=== PATIENT | female | born 1980 | race Caucasian/White ===

== ENCOUNTER 2022-02-02 01:24 | Emergency (ER) | payer MEDICAID ==
[~2022-02-02] VITALS: Ht 154.9 cm; Wt 58.3 kg
[~2022-02-02 01:24] MED LIST: IBUP-1984 PO
[2022-02-02 01:44] VITALS: BP 139/103
== END 2022-02-02 05:37 | disposition left against medical advice (07) ==
LOC: ER 01:24
DX: F41.0 Panic disorder [episodic paroxysmal anxiety] (principal); Z53.21 Procedure and treatment not carried out due to patient leaving prior to being seen by health care provider

== ENCOUNTER 2022-02-07 05:39 | Emergency (ER) | payer MEDICAID ==
[~2022-02-07] VITALS: Ht 157.5 cm; Wt 61.4 kg
--- NOTE | 2022-02-07 06:04 | NUR ---
Poison Control - Advised to give charcoal. 4hr tylenol and aspirin level at 0900. HR will eventually reflect sinus tach d/t caffeine ingested.
[2022-02-07] MEDS ORDERED: charcoal, activated 50 GM/240 ML bottle PO ONE (06:05)
[2022-02-07 06:09] LABS: URINE HCG NEGATIVE (NEG)
[2022-02-07 06:15] LABS: BASOPHILS # (AUTO) 0.1 X10'3 (0-0.2); BASOPHILS % (AUTO) 0.6 % (0-1); EOSINOPHILS # (AUTO) 0.1 X10'3 (0-0.9); EOSINOPHILS % (AUTO) 1.3 % (0-6); HEMATOCRIT 41.3 % (35.0-45.0); HEMOGLOBIN 13.9 g/dl (12.0-16.0); LYMPHOCYTES # (AUTO) 3.5 X10'3 (1.1-4.8); MEAN CORPUSCULAR HEMOGLOBIN 31.1 PG (27.0-31.0); MEAN CORPUSCULAR HGB CONC 33.7 g/dL (33.0-36.5); MEAN CORPUSCULAR VOLUME 92.4 FL (78-98); MEAN PLATELET VOLUME 6.9 FL (7.4-10.4); MONOCYTES # (AUTO) 0.9 X10'3 (0-0.9); MONOCYTES % (AUTO) 8.3 % (2-12); NEUTROPHILS # (AUTO) 6.7 X10'3 (1.8-7.7); NEUTROPHILS % (AUTO) 58.8 % (42-75); PLATELET COUNT 228 X10'3 (140-440); RED BLOOD COUNT 4.47 X10'6 (4.20-5.60); WHITE BLOOD COUNT 11.4 X10'3 (4.5-11.0)
[2022-02-07 06:22] LABS: ALANINE AMINOTRANSFERASE 17 U/L (12-78); ALBUMIN 3.7 G/DL (3.4-5.0); ALKALINE PHOSPHATASE 79 IU/L (46-116); ANION GAP 12 (8-16); ASPARTATE AMINO TRANSFERASE 12 U/L (10-37); BILIRUBIN,TOTAL 0.4 MG/DL (0.1-1.0); BLOOD UREA NITROGEN 5 MG/DL (7-18); BUN/CREATININE RATIO 8.6 (6.6-38.0); CALCIUM 8.8 MG/DL (8.5-10.1); CHLORIDE 103 MMOL/L (99-107); CLARITY,URINE CLEAR (Clear); CREATININE 0.58 MG/DL (0.40-0.90); GLUCOSE 108 MG/DL (70-104); GLUCOSE, URINE NEGATIVE (Neg); KETONES,URINE TRACE mg/dl (Neg); LEUKOCYTE ESTERASE ,URINE NEGATIVE (Neg); NITRITES, URINE NEGATIVE (Neg); OCCULT BLOOD,URINE NEGATIVE (Neg); POTASSIUM 3.1 MMOL/L (3.5-5.1); PROTEIN,URINE NEGATIVE (Neg); SODIUM 137 MMOL/L (135-145); TOTAL CARBON DIOXIDE 22.3 MMOL/L (24-32); TOTAL PROTEIN 7.3 G/DL (6.4-8.2); UROBILINOGEN,URINE 0.2 E.U/dL (0.2-1.0); eGFR > 90 ML/MIN
[2022-02-07 06:23] LABS: URINE AMPHETAMINE SCREEN NEGATIVE (Neg); URINE BARBITUATE SCREEN NEGATIVE (Neg); URINE BENZODIAZEPINES SCREEN NEGATIVE (Neg); URINE CANNABINOID SCREEN NEGATIVE (Neg); URINE COCAINE SCREEN NEGATIVE (Neg); URINE METHADONE SCREEN NEGATIVE (Neg); URINE OPIATE SCREEN NEGATIVE (Neg); URINE PHENCYCLIDINE SCREEN NEGATIVE (Neg)
[2022-02-07 06:25] LABS: COLOR,URINE STRAW (Yellow); UA COLLECTION TYPE CLN CATCH MIDSTREAM
[2022-02-07 06:33] LABS: ETHANOL < 0.010 GM/DL (0.0-0.010)
--- NOTE | 2022-02-07 07:07 | NUR ---
Pt sitting on edge of gurney drinking charcoal, pt requiring encouragement to drink.
[2022-02-07 08:28] LABS: ACETAMINOPHEN 57.7 UG/ML (10-30)
[2022-02-07 09:58] LABS: ACETAMINOPHEN 31.1 UG/ML (10-30)
--- NOTE | 2022-02-07 11:02 | NUR ---
POISON CONTROL CALLED AT PROVIDERS REQUEST REGARDING CONTINUED OBSERVATION TIME. PER POISON CONTROL PT IS NOT MEDICALLY CLEARED: ~NO NEED TO CONTINUE TO MONITOR FOR TYLENOL LEVELS ~CONTINUE TO MONITOR FOR ASA LEVEL UNTIL THERE IS A "PEEK AND 2 LEVELS TRENDING DOWN." PROVIDER HAS BEEN NOTIFIED
--- NOTE | 2022-02-07 15:25 | NUR ---
Reported lab results to poison control. Poison control is closing case, recommended CMP and ASA redraw at 1800 per ER MD discretion
[2022-02-07 19:32] LABS: ALANINE AMINOTRANSFERASE 20 U/L (12-78); ALBUMIN 3.8 G/DL (3.4-5.0); ALKALINE PHOSPHATASE 81 IU/L (46-116); ANION GAP 12 (8-16); ASPARTATE AMINO TRANSFERASE 12 U/L (10-37); BILIRUBIN,TOTAL 0.4 MG/DL (0.1-1.0); BLOOD UREA NITROGEN 9 MG/DL (7-18); BUN/CREATININE RATIO 12.3 (6.6-38.0); CALCIUM 8.6 MG/DL (8.5-10.1); CHLORIDE 102 MMOL/L (99-107); CREATININE 0.73 MG/DL (0.40-0.90); GLUCOSE 137 MG/DL (70-104); POTASSIUM 3.6 MMOL/L (3.5-5.1); SODIUM 137 MMOL/L (135-145); TOTAL CARBON DIOXIDE 22.7 MMOL/L (24-32); TOTAL PROTEIN 7.6 G/DL (6.4-8.2); eGFR 89 ML/MIN
[2022-02-07] MEDS ORDERED: NO HOME MEDS (20:12)
--- NOTE | 2022-02-07 20:12 | NUR ---
The patient moved to bed 23 from the main ER and she was cooperative with the move. She made a call to her son. She stated currently she is not hearing voices but while in the main ER she stated that she was hearing "murmerings" She believes it was of her sister. She stated that she had been feeling depressed but denied that she felt suicidal.
--- NOTE | 2022-02-07 20:21 | NUR ---
Nurse to nurse with [facility], [place].
--- NOTE | 2022-02-07 21:35 | NUR ---
The patient has been accepted at [facility], [place] for transfer in the AM.
--- NOTE | 2022-02-07 23:09 | NUR ---
THe patient appears to be sleeping
--- NOTE | 2022-02-08 00:09 | NUR ---
The patient appears to be sleeping
--- NOTE | 2022-02-08 01:30 | NUR ---
The patient appears to be sleeping
--- NOTE | 2022-02-08 03:03 | NUR ---
The patient appears to be sleeping
[2022-02-08 05:14] VITALS: BP 125/81
--- NOTE | 2022-02-08 05:42 | NUR ---
The patient appears to be sleeping at this time
--- NOTE | 2022-02-08 07:00 | NUR ---
Pt's aunt Flory Kimbrough called to ask how the pt was doing. Obtained verbal permission from pt to discuss plan of care with aunt. Pt has a 16 year old son that aunt has made arrangements for care. Aunt notified of pt's pending transfer to [facility]. Aunt [place] of [place].
--- NOTE | 2022-02-08 08:24 | NUR ---
[facility] office called to report pt to be picked up for transfer to [id number] this morning.
--- NOTE | 2022-02-08 08:30 | NUR ---
D/c'd saline lock left AC.
--- NOTE | 2022-02-08 08:46 | NUR ---
[facility] ambulated off the unit accompanied by [facility] fuel truck driver and security, all belongings returned including stylet for tablet that was being held by security.
== END 2022-02-08 08:46 ==
LOC: ER 05:40
DX: R45.851 Suicidal ideations (principal); Z20.822 Contact with and (suspected) exposure to COVID-19; G89.29 Other chronic pain; M54.9 Dorsalgia, unspecified; F17.200 Nicotine dependence, unspecified, uncomplicated; F15.10 Other stimulant abuse, uncomplicated; F12.10 Cannabis abuse, uncomplicated; Z56.0 Unemployment, unspecified
CPT/HCPCS: 36415; 80053; 80305; 80320; 80329; 81003; 81025; 83605; 84443; 85025; 87811; 99285

== ENCOUNTER 2022-06-02 15:24 | Emergency (ER) | payer MEDICAID ==
[~2022-06-02] VITALS: Ht 154.9 cm; Wt 81.0 kg
[~2022-06-02 15:24] MED LIST changes: -IBUP-1984 PO; +NO HOME MEDS
[2022-06-02] MEDS ORDERED: diphenhydrAMINE 50 mg/ml inj IM ONE (16:00)
[2022-06-02] MEDS ORDERED: methylPREDNISolone sod succ 125mg/2ml vial IM ONE (16:00)
[2022-06-02 17:28] VITALS: BP 110/80
[2022-06-02] MEDS ORDERED: normal saline 1000ml 1,000 ML IV ONE (18:15)
[2022-06-02] MEDS ORDERED: famotidine/PF 10 mg/ml inj IV ONE (18:15)
[2022-06-02] MEDS ORDERED: METH4TAB81 PO (19:23)
[2022-06-02] MEDS ORDERED: EPIN0.3P3 IM (19:24)
[2022-06-02] MEDS ORDERED: diphenhydrAMINE 50 mg/ml inj IV ONE (19:25)
== END 2022-06-02 20:07 | disposition home or self-care (01) ==
LOC: ER 15:25
DX: T78.40XA Allergy, unspecified, initial encounter (principal); G89.29 Other chronic pain; F32.9 Major depressive disorder, single episode, unspecified; F12.90 Cannabis use, unspecified, uncomplicated; F15.90 Other stimulant use, unspecified, uncomplicated; Z72.89 Other problems related to lifestyle; Z56.0 Unemployment, unspecified; Z98.890 Other specified postprocedural states; X58.XXXA Exposure to other specified factors, initial encounter
CPT/HCPCS: 96361; 96372; 96374; 96375; 99284; J1200; J2930; J3490; J7030

== ENCOUNTER 2022-06-05 15:01 | Emergency (ER) | payer MEDICAID ==
[~2022-06-05] VITALS: Ht 154.9 cm; Wt 82.5 kg
[~2022-06-05 15:01] MED LIST changes: +EPIN0.3P3 IM; +METH4TAB81 PO
[2022-06-05 15:06] VITALS: BP 113/75
[2022-06-05] MEDS ORDERED: dexamethasone sod phosphate 10mg/ml inj PO STA (20:31)
[2022-06-05] MEDS ORDERED: PRED20TA PO (20:35)
[2022-06-05] MEDS ORDERED: famotidine 20mg tablet PO ONE (20:35)
[2022-06-05] MEDS ORDERED: diphenhydrAMINE 50 mg/ml inj IM ONE (20:35)
== END 2022-06-05 21:12 | disposition home or self-care (01) ==
LOC: ER 15:02
DX: T78.40XA Allergy, unspecified, initial encounter (principal); G89.29 Other chronic pain; M54.9 Dorsalgia, unspecified; F32.A Depression, unspecified; F12.10 Cannabis abuse, uncomplicated; F15.10 Other stimulant abuse, uncomplicated; Z59.00 Homelessness unspecified; Z79.899 Other long term (current) drug therapy
CPT/HCPCS: 96372; 99283; J1100; J1200

== ENCOUNTER 2022-12-17 10:06 | Emergency (ER) | payer MEDICAID ==
[~2022-12-17] VITALS: Ht 154.9 cm; Wt 67.8 kg
[2022-12-17 10:19] VITALS: TEMP 97.7
[2022-12-17 11:26] VITALS: BP 110/71; PULSE 77; RESP 13; O2SAT 98
== END 2022-12-17 12:26 | disposition home or self-care (01) ==
LOC: ER 10:06
DX: S00.431A Contusion of right ear, initial encounter (principal); F41.9 Anxiety disorder, unspecified; F31.9 Bipolar disorder, unspecified; G89.29 Other chronic pain; M54.9 Dorsalgia, unspecified; F12.10 Cannabis abuse, uncomplicated; F15.10 Other stimulant abuse, uncomplicated; Z56.0 Unemployment, unspecified; Z91.010 Allergy to peanuts; Z79.899 Other long term (current) drug therapy; X58.XXXA Exposure to other specified factors, initial encounter; Y93.89 Activity, other specified; Y92.89 Other specified places as the place of occurrence of the external cause; Y99.8 Other external cause status
CPT/HCPCS: 70450; 99284

== ENCOUNTER 2023-03-12 16:49 | Emergency (ER) | payer MEDICAID ==
[~2023-03-12] VITALS: Ht 154.9 cm; Wt 90.0 kg
[2023-03-12 17:04] VITALS: BP 118/40; PULSE 87; TEMP 98; O2SAT 98
[2023-03-12] MEDS ORDERED: ketorolac tromethamine 15mg/ml inj. IM ONE (19:05)
[2023-03-12] MEDS ORDERED: oxyCODONE/APAP 5-325mg tablet PO ONE (19:05)
[2023-03-12] MEDS ORDERED: IBUP-1984 PO (19:09)
[2023-03-12 19:23] VITALS: RESP 18
== END 2023-03-12 20:11 | disposition home or self-care (01) ==
LOC: ER 16:49
DX: S50.02XA Contusion of left elbow, initial encounter (principal); X58.XXXA Exposure to other specified factors, initial encounter; Y93.89 Activity, other specified; Y92.89 Other specified places as the place of occurrence of the external cause; Y99.8 Other external cause status
CPT/HCPCS: 73080; 96372; 99283; J1885; A4565

== ENCOUNTER 2024-06-02 20:04 | Inpatient (IN) | payer MEDICAID ==
[~2024-06-02] VITALS: Ht 154.9 cm; Wt 70.6 kg
[2024-06-02 20:22] LABS: BASOPHILS # (AUTO) 0.1 X10'3 (0-0.2); BASOPHILS % (AUTO) 1.2 % (0-1); EOSINOPHILS # (AUTO) 0.1 X10'3 (0-0.9); EOSINOPHILS % (AUTO) 1.5 % (0-6); HEMATOCRIT 42.1 % (35.0-45.0); HEMOGLOBIN 14.2 g/dl (12.0-16.0); LYMPHOCYTES # (AUTO) 2.2 X10'3 (1.1-4.8); LYMPHOCYTES % (AUTO) 28.7 % (21-51); MEAN CORPUSCULAR HEMOGLOBIN 31.2 PG (27.0-31.0); MEAN CORPUSCULAR HGB CONC 33.8 g/dL (33.0-36.5); MEAN CORPUSCULAR VOLUME 92.5 FL (78-98); MEAN PLATELET VOLUME 6.5 FL (7.4-10.4); MONOCYTES # (AUTO) 0.6 X10'3 (0-0.9); MONOCYTES % (AUTO) 7.5 % (2-12); NEUTROPHILS # (AUTO) 4.7 X10'3 (1.8-7.7); NEUTROPHILS % (AUTO) 61.1 % (42-75); PLATELET COUNT 192 X10'3 (140-440); RED BLOOD COUNT 4.56 X10'6 (4.20-5.60); RED CELL DISTRIBUTION WIDTH 13.2 % (11.5-14.5); WHITE BLOOD COUNT 7.7 X10'3 (4.5-11.0)
[2024-06-02] MEDS: charcoal/sorbitol 50gm/240ml suspension PO ONE (20:25)
[2024-06-02] MEDS: charcoal/sorbitol 25GM/120ML oral SUSPension PO ONE (20:27)
[2024-06-02 20:51] LABS: SALICYLATE 2.8 MG/DL (4.0-20.0)
[2024-06-02 20:53] LABS: ALANINE AMINOTRANSFERASE 18 U/L (12-78); ALBUMIN 3.7 G/DL (3.4-5.0); ALBUMIN/GLOBULIN RATIO 1.2 (1.1-1.5); ANION GAP 12 (8-16); ASPARTATE AMINO TRANSFERASE 12 U/L (10-37); BILIRUBIN,TOTAL 0.6 MG/DL (0.1-1.0); BLOOD UREA NITROGEN 9 MG/DL (7-18); BUN/CREATININE RATIO 9.5 (10.0-20.0); CALCIUM 8.9 MG/DL (8.5-10.1); CHLORIDE 107 MMOL/L (99-107); CREATININE 0.95 MG/DL (0.40-0.90); GLUCOSE 126 MG/DL (70-104); POTASSIUM 3.8 MMOL/L (3.5-5.1); SODIUM 142 MMOL/L (135-145); TOTAL CARBON DIOXIDE 23.2 MMOL/L (24-32); TOTAL PROTEIN 6.7 G/DL (6.4-8.2); eCRCL 73 ML/MIN; eGFR 65 ML/MIN
[2024-06-02] MEDS: normal saline 1000ml 1,000 ML IV ONE (21:00)
[2024-06-02 21:05] LABS: ACETAMINOPHEN < 2.0 UG/ML (10-30)
[2024-06-02 21:06] LABS: ALKALINE PHOSPHATASE 80 IU/L (46-116)
[2024-06-02 21:07] LABS: ETHANOL < 10 MG/DL (<10)
[2024-06-02 21:32] LABS: URINE HCG NEGATIVE (NEG)
[2024-06-02 21:35] LABS: BILIRUBIN,URINE SMALL (Neg); CLARITY,URINE SLIGHTLY CLOUDY (Clear); COLOR,URINE YELLOW (Yellow); GLUCOSE, URINE NEGATIVE (Neg); KETONES,URINE >=80 mg/dl (Neg); LEUKOCYTE ESTERASE ,URINE NEGATIVE (Neg); NITRITES, URINE NEGATIVE (Neg); OCCULT BLOOD,URINE NEGATIVE (Neg); PH,URINE 5.5 (4.8-8.0); PROTEIN,URINE TRACE mg/dl (Neg); UROBILINOGEN,URINE 0.2 E.U/dL (0.2-1.0)
[2024-06-02 21:48] LABS: UA COLLECTION TYPE NON-SPECIFIED
[2024-06-02 21:49] LABS: BACTERIA,URINE 1+ /HPF (Neg); HYALINE CASTS 0-3 /LPF (NEGATIVE); MUCUS STRANDS MODERATE /LPF (Neg); RBC,URINE 0-2 /HPF (0-2); SQUAMOUS EPITHELIAL CELL,UR MODERATE /LPF (FEW); WBC,URINE 0-4 /HPF (0-4)
[2024-06-02 21:57] LABS: URINE AMPHETAMINE SCREEN POSITIVE (Neg); URINE BARBITUATE SCREEN NEGATIVE (Neg); URINE BENZODIAZEPINES SCREEN NEGATIVE (Neg); URINE CANNABINOID SCREEN NEGATIVE (Neg); URINE COCAINE SCREEN NEGATIVE (Neg); URINE METHADONE SCREEN NEGATIVE (Neg); URINE OPIATE SCREEN NEGATIVE (Neg); URINE PHENCYCLIDINE SCREEN NEGATIVE (Neg)
[2024-06-03] MEDS ORDERED: TRAZ-251 PO (02:06)
[2024-06-03] MEDS ORDERED: CETI10TA14 PO (02:06)
[2024-06-03] MEDS ORDERED: BUPR-561 PO (02:06)
[2024-06-03] MEDS ORDERED: FLUT15.845 BOTHNARES (02:06)
[2024-06-03] MEDS ORDERED: SUMA50TA17 PO (02:06)
[2024-06-03] MEDS ORDERED: EPIN0.3A3 INJ (02:06)
[2024-06-03] MEDS: BUPROPION HCL 150MG XL 24 HR 150 MG TAB PO SCH (08:32)
[2024-06-03] MEDS: cetirizine 10mg tablet PO SCH (08:32)
[2024-06-03 12:47] VITALS: BP 96/60; PULSE 99; RESP 16; TEMP 98.4; O2SAT 97
[2024-06-03] MEDS ORDERED: mag hydrox/Alum hydrox/simeth 30ml oral suspension PO PRN (12:55)
[2024-06-03] MEDS ORDERED: magnesium hydroxide 30ml (MOM) UD suspension PO PRN (12:55)
[2024-06-03 14:20] VITALS: RESP 16; O2SAT 97
[2024-06-03 19:00] VITALS: RESP 16; O2SAT 98
[2024-06-03 20:00] VITALS: BP 109/59; PULSE 98; RESP 16; TEMP 98.7; O2SAT 97
[2024-06-03] MEDS: traZODone 50mg tablet PO PRN (21:32)
[2024-06-03] MEDS: NICOTINE POLACRILEX 2 MG LOZENGE BC PRN (21:32)
[2024-06-04 07:45] VITALS: RESP 16; O2SAT 96
[2024-06-04 08:00] VITALS: BP 109/61; PULSE 85; RESP 16; TEMP 99.2; O2SAT 96
[2024-06-04 08:25] LABS: CHOL/HDL RATIO 2.1 (0.00-4.99); CHOLESTEROL 101 MG/DL (0-200); HDL CHOLESTEROL 49 MG/DL (35-60); LDL CHOLESTEROL 46 MG/DL (50-100); TRIGLYCERIDES 69 MG/DL (20-135)
[2024-06-04] MEDS: nicotine 21mg patch - 24 hr TD SCH (08:37)
[2024-06-04 19:00] VITALS: RESP 15; O2SAT 97
[2024-06-04 20:00] VITALS: BP 104/58; PULSE 88; RESP 15; TEMP 98.3; O2SAT 97
[2024-06-04] MEDS: lithium carbonate 150mg capsule PO SCH (21:05)
[2024-06-04] MEDS: acetaminophen 325mg tablet PO PRN (21:06)
[2024-06-05 08:00] VITALS: BP 107/65; PULSE 79; RESP 16; TEMP 96.2; O2SAT 98
[2024-06-05] MEDS: BUPROPION HCL 150MG XL 24 HR 150 MG TAB PO ONE (11:47)
[2024-06-05 19:00] VITALS: RESP 16; O2SAT 100
[2024-06-05 19:23] VITALS: BP 115/64; PULSE 77; RESP 16; TEMP 98.8; O2SAT 100
[2024-06-05] MEDS: acetaminophen 325mg tablet PO PRN (20:12)
[2024-06-06] MEDS: BUPROPION HCL 150MG XL 24 HR 150 MG TAB PO SCH (07:50)
[2024-06-06 07:55] VITALS: RESP 14; O2SAT 97
[2024-06-06 08:00] VITALS: BP 103/67; PULSE 78; RESP 14; TEMP 98.1
[2024-06-06 19:10] VITALS: BP 114/67; PULSE 80; RESP 18; TEMP 98.6; O2SAT 100
[2024-06-07 07:30] VITALS: BP 100/71; PULSE 90; RESP 14; TEMP 98.2; O2SAT 97
[2024-06-07 09:19] VITALS: RESP 14; O2SAT 97
[2024-06-07 19:39] VITALS: BP 115/71; PULSE 86; RESP 20; TEMP 98.5; O2SAT 98
[2024-06-07] MEDS: hydrOXYzine 25 MG tablet PO PRN (20:22)
[2024-06-08 07:30] VITALS: BP 100/64; PULSE 86; RESP 18; TEMP 97.7; O2SAT 98
[2024-06-08 07:46] VITALS: RESP 18; O2SAT 98
[2024-06-08] MEDS ORDERED: LITH150C8 PO (11:47)
[2024-06-08] MEDS ORDERED: HYDR-3686 PO (11:47)
[2024-06-08] MEDS ORDERED: BUPR-94 PO (11:49)
== END 2024-06-08 16:00 | disposition home or self-care (01) | DRG 751 ==
LOC: ER 20:04 → UNDOADMIN 06-03 11:45 → ED HOLD 06-03 11:45 → ADULT MH 06-03 12:49 → ED HOLD 06-03 12:49
PROVIDERS: ADMIT Psychiatry & Neurology Psychiatry; ATTEND Psychiatry & Neurology Psychiatry
PROC: GZHZZZZ Group Psychotherapy (ICD-10-PCS; principal; 2024-06-04)
PROC: GZ51ZZZ Individual Psychotherapy, Behavioral (ICD-10-PCS; 2024-06-04)
DX: F33.9 Major depressive disorder, recurrent, unspecified (principal); R45.851 Suicidal ideations; F15.10 Other stimulant abuse, uncomplicated; F41.9 Anxiety disorder, unspecified; Z20.822 Contact with and (suspected) exposure to COVID-19; F60.9 Personality disorder, unspecified; G43.909 Migraine, unspecified, not intractable, without status migrainosus; G89.29 Other chronic pain; M54.9 Dorsalgia, unspecified; Z88.8 Allergy status to other drugs, medicaments and biological substances; Z91.018 Allergy to other foods; Z79.899 Other long term (current) drug therapy
CPT/HCPCS: 36415; 80053; 80061; 80305; 80320; 80329; 81001; 81025; 84145; 84443; 85025; 87081; 87502; 87503; 87811; 93005; 99285; A6250; C1758; C2617; J7030; Q0177

== ENCOUNTER 2025-04-03 23:38 | Emergency (ER) | payer MEDICAID ==
[~2025-04-03] VITALS: Ht 154.9 cm; Wt 68.0 kg
[~2025-04-03 23:38] MED LIST changes: +ARIP15TA68 PO; +CETI10TA14 PO; +EPIN0.3A3 INJ; -EPIN0.3P3 IM; +FLUT15.845 BOTHNARES; +GABA-535 PO; -METH4TAB81 PO; -NO HOME MEDS; +SERT-434 PO; +SUMA50TA17 PO
[2025-04-04 00:07] VITALS: BP 153/119; PULSE 103; TEMP 97.1; O2SAT 98
--- NOTE | 2025-04-04 00:39 | Physician Documentation ---
History of Present Illness General Chief Complaint: Mechanical Fall Stated Complaint: FALL Time Seen by MD: 00:39 Primary Medical Doctor: [facility] History of Present Illness Initial Comments The patient is a 44-year-old female with a history of methamphetamine abuse she states she fell out of her scooter striking her head 2 hours ago complaining of posterior occipital pain. Patient denies any loss of consciousness. Patient complains of whole-body stiffness since he has not had. No recent fevers chills nausea or vomiting Medication Reconciliation Allergies: Coded Allergies: nut - unspecified (Verified Allergy, Severe, 08/26/24) Hives noted with nuts Uncoded Allergies: PEANUTS (Allergy, Severe, 08/26/24) Hives ALMONDS (Allergy, Intermediate, 12/17/22) SESAME SEEDS (Allergy, Intermediate, 12/17/22) TREES (Allergy, Mild, 12/17/22) Scheduled Aripiprazole (Aripiprazole), 1 TAB PO DAILY Cetirizine HCl (Cetirizine HCl), 1 TAB PO DAILY, (Reported) Gabapentin (Gabapentin), 400 MG PO BID Sertraline HCl (Sertraline HCl), 1 TAB PO DAILY Scheduled PRN Epinephrine (Epinephrine), 1 UNIT INJ PRN PRN for allergies, (Reported) Sumatriptan Succinate (Sumatriptan Succinate), 1 TAB PO DAILY PRN for headache, (Reported) Miscellaneous Medications Fluticasone Propionate (Fluticasone Propionate), 1 SPR BOTHNARES, (Reported) Past Medical History Past Medical History: Chronic Back Pain, Anxiety, Depression Past Surgical History: orthopedic surgeries Smoking: Cigarettes, Greater than 1 pack/day Alcohol Use: Occasionally Drug Use: marijuana, methamphetamine Lives with: Family Lives In: Home Occupation: unemployed Review of Systems All Other Systems at this time: Reviewed and Negative Physical Exam Physical Exam Vital Signs: Temperature: 97.1, Source: Oral, Heart Rate: 103, Respiratory Rate: 16, BP: 153/119, Pulse Oximetry: 98, Weight: 68.000 Physical Exam VITALS: Reviewed and as above. GENERAL: Alert, no apparent distress. HEENT: Normocephalic, atraumatic, PERRL, EOMI, dry mucosa, no erythema RESPIRATORY: Lungs clear, normal breath sounds, no respiratory distress. CHEST: No accessory muscle use, no retractions CV: Regular rate, rhythm, no edema, no murmur, No: JVD GI: Soft, non-tender, bowels sounds present, no rebound, guarding, or rigidity BACK: No CVA tenderness, or swelling MUSCULOSKELETAL: No deformities, no edema SKIN: Warm and dry, no rash NEURO: Oriented x4, No motor or sensory deficit PSYCH: Slight psychomotor agitation Progress Results/Orders Results/Orders Orders - HAILEY LEMUS MD Ct Head (04/04/25 00:52) Completed Orders - HAILEY LEMUS MD Ct Head (04/04/25 00:52) Ketorolac Trometh 15mg/Ml Vial (Toradol (04/04/25 00:55) Medical Decision Making Additional information obtaine: old records Findings Patient appeared to be methamphetamine intoxicated she stated she struck her head and fell off her scooter. The patient otherwise has a nonfocal neurologic exam the patient had a negative head CT the patient left prior to intentional discharged. Prior hospitalizations has been reviewed the patient's pulse oximetry was interpreted as normal Differential Diagnosis Contusion, intracranial hemorrhage, Departure Disposition: 01 HOME / SELF CARE / HOMELESS Impression: Primary Impression: Fall Qualified Codes: W19.XXXA - Unspecified fall, initial encounter Additional Impression: Methamphetamine abuse Referrals: NO PRIMARY CARE PROVIDER (PCP) Signature Scribe Signature: no scribe Attestation: The note accurately reflects work and decisions made by me.Hailey Lemus MD 04/08/25 11:13 HAILEY LEMUS MD Apr 04, 2025 00:39
[2025-04-04 00:41] VITALS: RESP 22
[2025-04-04] MEDS ORDERED: ketorolac trometh 15mg/ml vial 15 MG/ML ML IM ONE (00:55)
--- NOTE | 2025-04-04 01:25 | RADIOLOGY REPORT ---
EXAM: CT CT HEAD INDICATION: fall head injury, pain TECHNIQUE: CT of the head without intravenous contrast. Radiation Dose Information: CT Dose: CTDI volume is 47.12 mGy. Dose-length product is 886.2 mGy*cm The dose indicators for CT are the volume Computed Tomography (CT) Dose Index (CTDIvol) and the Dose Length Product (DLP), and are measured in units of mGy and mGy-cm, respectively. These indicators are not patient dose, but values generated from the CT scanner acquisition factors. The report includes radiation exposure data for exposures received during this examination. COMPARISON: None FINDINGS: There is no evidence of acute intracranial hemorrhage, extra-axial collection, mass effect, midline shift, herniation or hydrocephalus. The ventricles, sulci and cisterns are age appropriate. The willis-white differentiation is intact. Patchy periventricular and subcortical white matter hypoattenuation is nonspecific but may be related to small vessel ischemic disease. The visualized paranasal sinuses and mastoid air cells are clear. Right parietal scalp swelling. IMPRESSION: No acute intracranial abnormality.
== END 2025-04-04 02:49 | disposition left against medical advice (07) ==
LOC: ER 23:38
DX: R51.9 Headache, unspecified (principal); F15.10 Other stimulant abuse, uncomplicated; F12.90 Cannabis use, unspecified, uncomplicated; G89.29 Other chronic pain; F41.9 Anxiety disorder, unspecified; F32.A Depression, unspecified; F17.210 Nicotine dependence, cigarettes, uncomplicated; Z91.018 Allergy to other foods; Z79.899 Other long term (current) drug therapy; Z56.0 Unemployment, unspecified; Z72.89 Other problems related to lifestyle; W05.1XXA Fall from non-moving nonmotorized scooter, initial encounter; Y93.89 Activity, other specified; Y92.89 Other specified places as the place of occurrence of the external cause; Y99.8 Other external cause status
CPT/HCPCS: 70450; 99284

== ENCOUNTER 2025-05-14 09:58 | Emergency (ER) | payer MEDICAID ==
[~2025-05-14] VITALS: Ht 154.9 cm; Wt 69.4 kg
[2025-05-14 10:52] LABS: LEUKOCYTE ESTERASE ,URINE NEGATIVE (Neg); NITRITES, URINE NEGATIVE (Neg); OCCULT BLOOD,URINE NEGATIVE (Neg)
[2025-05-14 10:53] LABS: UA COLLECTION TYPE CLN CATCH MIDSTREAM; URINE HCG NEGATIVE (NEG)
[2025-05-14 11:05] LABS: MEAN PLATELET VOLUME 6.8 FL (7.4-10.4); RED CELL DISTRIBUTION WIDTH 13.7 % (11.5-14.5)
[2025-05-14 11:13] LABS: CREATININE 0.68 MG/DL (0.40-0.90); TOTAL CARBON DIOXIDE 29.7 MMOL/L (24-32); eCRCL 81 ML/MIN; eGFR > 90 ML/MIN
--- NOTE | 2025-05-14 11:32 | Physician Documentation ---
History of Present Illness General Chief Complaint: Flank Pain Stated Complaint: BACK AND FLANK PAIN Time Seen by MD: 11:09 OK to notify your PCP?: Yes [facility] Mode of Arrival: Ambulatory History of Present Illness Initial Comments 44 year old female came to the ER with cc of left back pain radiating to left flank and to left groin for the past day, she woke up in the morning at 2 am, with sudden onset pain in the back, no inciting trauma denies fever, uti symptoms, n/v, abd pain denies previous h/o kidney stones currently pain is 6/10 no similiar kind of pain in the past she took acetaminophen for the pain she is taking lithium and zoloft Medication Reconciliation Allergies: Coded Allergies: nut - unspecified (Verified Allergy, Severe, 05/14/25) Hives noted with nuts Uncoded Allergies: PEANUTS (Allergy, Severe, 08/26/24) Hives ALMONDS (Allergy, Intermediate, 12/17/22) SESAME SEEDS (Allergy, Intermediate, 12/17/22) TREES (Allergy, Mild, 12/17/22) Scheduled Aripiprazole (Aripiprazole), 1 TAB PO DAILY Cetirizine HCl (Cetirizine HCl), 1 TAB PO DAILY, (Reported) Gabapentin (Gabapentin), 400 MG PO BID Ibuprofen (Ibuprofen), 1 TAB PO Q8H Sertraline HCl (Sertraline HCl), 1 TAB PO DAILY Scheduled PRN Epinephrine (Epinephrine), 1 UNIT INJ PRN PRN for allergies, (Reported) ONDANSETRON ODT 4mg tablet (Ondansetron Odt), 1 TAB PO Q6H PRN PRN for nausea/vomiting Sumatriptan Succinate (Sumatriptan Succinate), 1 TAB PO DAILY PRN for headache, (Reported) Miscellaneous Medications Fluticasone Propionate (Fluticasone Propionate), 1 SPR BOTHNARES, (Reported) Past Medical History Past Medical History: Chronic Back Pain, Anxiety, Depression Other Past Medical History: schizophrenia/ depression Past Surgical History: orthopedic surgeries Smoking: Cigarettes, Greater than 1 pack/day Alcohol Use: Occasionally Drug Use: marijuana, methamphetamine Lives with: Family Lives In: Home Occupation: unemployed Review of Systems All Other Systems at this time: Reviewed and Negative Physical Exam Physical Exam Vital Signs: Temperature: 98.7, Source: Oral, Heart Rate: 72, Respiratory Rate: 15, BP: 115/82, Pulse Oximetry: 99, Weight: 69.400 Oxygen Flow Rate: 0 General Appearance: alert, no apparent distress Respiratory: lungs clear Chest: no accessory muscle use Cardiovascular: regular rate, rhythm Cardiovascular S1. S2 heard Gastrointestinal: normal palpation, non-tender Back tenderness in the spine at L1 level, with tenderness in the left flank and groin Progress Results/Orders Results/Orders Completed Orders - OHLVIC LUBIN MD Urinalysis, Cult If Indicated (05/14/25 10:21) Hcg, Ur Ql (05/14/25 10:21) Cbc/Diff (05/14/25 10:21) BMP (05/14/25 10:21) Lipase (05/14/25 10:21) CMP (05/14/25 10:21) Vital Signs 05/14/25 05/14/25 05/14/25 05/14/25 10:17 10:49 10:49 11:41 Temp 98.7 Pulse 87 72 59 Resp 18 14 15 18 B/P (MAP) 114/79 115/82 (93) 115/75 (88) Pulse Ox 97 99 100 O2 Flow Rate 0 0 0 05/14/25 05/14/25 05/14/25 11:58 12:26 13:08 Temp 98.2 Pulse 72 65 Resp 20 16 18 B/P (MAP) 109/69 109/87 (94) Pulse Ox 98 96 O2 Flow Rate 0 Laboratory Tests Test 05/14/25 10:30 05/14/25 10:46 Urine Specimen Description Cln catch midstream Urine Color Yellow Urine Clarity Clear Urine pH 7.5 Urine Specific [place] 1.015 Urine Protein Negative Urine Glucose (UA) Negative Urine Ketones Negative Urine Occult Blood Negative Urine Nitrite Negative Urine Bilirubin Negative Urine Urobilinogen 0.2 Urine Leukocyte Esterase Negative Urine Culture Indicated Not ind Volume Urine Centrifuged 10 ml Urine HCG, Qualitative Negative Urine Comment White Blood Count 8.7 Red Blood Count 4.53 Hemoglobin 14.0 Hematocrit 41.4 Mean Corpuscular Volume 91.3 Mean Corpuscular Hemoglobin 30.9 Mean Corpuscular Hemoglobin Concent 33.8 Red Cell Distribution Width 13.7 Platelet Count 219 Mean Platelet Volume 6.8 L Neutrophils (%) (Auto) 72.2 Lymphocytes (%) (Auto) 20.0 L Monocytes (%) (Auto) 5.7 Eosinophils (%) (Auto) 1.5 Basophils (%) (Auto) 0.6 Neutrophils # (Auto) 6.3 Lymphocytes # (Auto) 1.7 Monocytes # (Auto) 0.5 Eosinophils # (Auto) 0.1 Basophils # (Auto) 0.1 CBC Comment Sodium Level 138 Potassium Level 4.5 Chloride Level 105 Carbon Dioxide Level 29.7 Anion Gap 3 L Blood Urea Nitrogen 11 Creatinine 0.68 Estimated GFR/1.73 m2 > 90 BUN/Creatinine Ratio 16.2 Glucose Level 95 Calcium Level 8.9 Total Bilirubin 0.2 Aspartate Amino Transf (AST/SGOT) 9 L Alanine Aminotransferase (ALT/SGPT) 15 Alkaline Phosphatase 86 Total Protein 6.8 Albumin 3.5 Globulin 3.3 Albumin/Globulin Ratio 1.1 Lipase 26 Chemistry Comments Medical Decision Making Additional information obtaine: old records Findings 44 year old female came to the ER with cc of left back pain radiating to left flank and to left groin for the past day, she woke up in the morning at 2 am, with sudden onset pain in the back, no inciting trauma denies fever, uti symptoms, n/v, abd pain denies previous h/o kidney stones currently pain is 6/10 no similiar kind of pain in the past she took acetaminophen for the pain she is taking lithium and zoloft cbc, cmp , and UA- negative will do CT abd/pelvis for possible kidney stones Ct showed left VUJ calculus will give iv toradol, and IVF NS bolus Differential Diagnosis left nephrolithiasis Departure Time of Disposition: 11:54 Disposition: 01 HOME / SELF CARE / HOMELESS Impression: Primary Impression: Left renal stone Condition: Improved Discharge Instructions: Dietary Guidelines to Help Prevent Kidney Stones, Kidney Stones Additional Instructions: Please take zofran as needed for nausea and ibuprofen EVERY 8 HRS for 2-3 days, and then take as neededfor pain keep yourself well hydrated take flomax to pass the stone' f/u with your PCP in a week return to the ER in case of persistent pain or fever you can call [facility] and make an appointment for kidney stone follow up [id number], [place] [id number] Referrals: NO PRIMARY CARE PROVIDER (PCP) Prescriptions Ibuprofen (Ibuprofen) 600 Mg Tablet 1 TAB PO Q8H for pain for 10 Days, #30 TAB 0 Refills with food Prov: ARAMIS MOSHER RES 05/14/25 ONDANSETRON ODT 4mg tablet (ONDANSETRON ODT) 4 Mg Tab.rapdis 1 TAB PO Q6H PRN PRN for nausea/vomiting for 4 Days, #16 TAB 0 Refills Prov: ARAMIS MOSHER, MARCELO 05/14/25 Education Educated: Patient Educated regarding: diagnosis, treatment, prognosis, need for follow up Additional Comment Seen with PA/MILL CONTROLLER The patient was seen with the resident physician and the residence note has been reviewed by myself and I agree with the note and the assessment plan as written. The patient was examined by myself. And I have supervised all aspects of the patients care Signature Scribe Signature: , Attestation: The note accurately reflects work and decisions made by me.Vic Sotelo MD 05/15/25 16:04 findings, assessment, plan and dispo d/w ARAMIS Cooper MD, RES May 14, 2025 11:31 VIC SOTELO MD May 15, 2025 16:05
--- NOTE | 2025-05-14 11:55 | RADIOLOGY REPORT ---
EXAM: CT CT ABDOMEN PELVIS HISTORY: LEFT FLANK PAIN COMPARISON STUDY: None TECHNIQUE: Multidetector CT of the abdomen and pelvis was performed from lung bases to pubic symphysis. Imaging was performed without IV contrast. Axial, coronal, and sagittal multiplanar reformats were obtained from the axial data set by the technologist. RADIATION DOSE: CTDI vol 16.20 mGy. DLP 827.5 mGy.cm FINDINGS: Lungs: Minimal basilar atelectasis. Liver: Unremarkable. Spleen: Unremarkable. Pancreas: Unremarkable. Gallbladder: Unremarkable. Adrenals: Unremarkable Kidneys: Unremarkable. Pelvic Viscera: Unremarkable. Vasculature: Unremarkable. Retroperitoneum: Unremarkable. Bowel: No bowel obstruction. The appendix is normal. Musculoskeletal: Degenerative changes of the lumbar spine most pronounced at L4-5. Soft tissues: Unremarkable IMPRESSION: 1. No acute abdominopelvic abnormality.
[2025-05-14] MEDS ORDERED: ONDA-243 PO (11:56)
[2025-05-14] MEDS ORDERED: IBUP600T52 PO (11:56)
[2025-05-14] MEDS: normal saline 1000ml 1,000 ML IV ONE (11:57)
[2025-05-14] MEDS: ketorolac trometh 15mg/ml vial 15 MG/ML ML IV ONE (11:58)
[2025-05-14] MEDS: ondansetron/PF 4mg/2ml inj IV ONE (12:03)
[2025-05-14 12:26] VITALS: TEMP 98.2
[2025-05-14 13:08] VITALS: BP 109/87; PULSE 65; RESP 18; O2SAT 96
== END 2025-05-14 13:10 | disposition home or self-care (01) ==
LOC: ER 09:59
DX: N20.0 Calculus of kidney (principal); F12.90 Cannabis use, unspecified, uncomplicated; F15.90 Other stimulant use, unspecified, uncomplicated; F20.9 Schizophrenia, unspecified; F32.A Depression, unspecified; F17.210 Nicotine dependence, cigarettes, uncomplicated; F41.9 Anxiety disorder, unspecified; G89.29 Other chronic pain; Z91.018 Allergy to other foods; Z79.899 Other long term (current) drug therapy; Z56.0 Unemployment, unspecified; Z72.89 Other problems related to lifestyle
CPT/HCPCS: 36415; 74176; 80053; 81003; 81025; 83690; 85025; 96361; 96374; 96375; 99285; J1885; J2405; J7030